=== PATIENT | male | born 1995 | race African-American/Black ===

== ENCOUNTER 2018-01-20 20:02 | Emergency (ER) | payer MEDICAID ==
[~2018-01-20] VITALS: Ht 182.9 cm; Wt 68.0 kg
[2018-01-20] MEDS ORDERED: IBUPROFEN 600MG TABLET PO ONE (21:30)
[2018-01-20 21:37] VITALS: BP 104/59
== END 2018-01-20 22:06 | disposition home or self-care (01) ==
LOC: ER 20:02
DX: V89.2XXA Person injured in unspecified motor-vehicle accident, traffic, initial encounter (principal); M79.1 Myalgia; F17.200 Nicotine dependence, unspecified, uncomplicated; Y93.89 Activity, other specified; Y92.89 Other specified places as the place of occurrence of the external cause; Y99.8 Other external cause status
CPT/HCPCS: 99283; Z7610